=== PATIENT | female | born 1970 | race Caucasian/White ===

== ENCOUNTER 2017-04-11 10:54 | Outpatient (CLI) | payer OTHER ==
--- NOTE | 2017-04-11 13:10 | XRAY Report ---
THREE-VIEW LEFT KNEE: 04/11/2017 CLINICAL INDICATION: Pain. FINDINGS: AP, lateral, sunrise views of the left knee demonstrate mild osteoarthritis, with small ma rginal osteophytes. There is no evidence of acute fracture or dislocation. No effusion is present. IMPRESSION: MILD OSTEOARTHRITIS. JOB #: [id number] EXT JOB #:[id number]
== END 2017-04-11 10:55 | disposition home or self-care (01) ==
LOC: DI 10:54
PROVIDERS: ATTEND Physician Assistant Medical
DX: M17.12 Unilateral primary osteoarthritis, left knee (principal)

== ENCOUNTER 2017-04-15 18:58 | Emergency (ER) | payer OTHER ==
[2017-04-15] MEDS ORDERED: KETOROLAC 60 MG/2 ML VIAL IM STA (20:57)
[2017-04-15] MEDS ORDERED: DEXAMETHASONE 10 MG/ML VIAL PO STA (20:57)
--- NOTE | 2017-04-15 21:15 | ED Physician Documentation ---
PD HPI LOWER EXT INJURY - Stated complaint Stated Complaint: L LEG PAIN - Chief complaint Chief Complaint: Ext Problem - History obtained from History obtained from: Patient - History of Present Illness PD HPI LOW EXT INJURY LOCATION: Left, Knee, Foot Type of injury: Other (foot has been hurting for weeks) Where injury occurred: Home Timing - onset: How many weeks ago (3) Timing - duration: Weeks (3) Timing - details: Gradual onset, Still present Improved by: Rest, Immobilization Worsened by: Moving, Other (weight bearing) Associated symptoms: Swelling. No: Weakness, Numbness, Tingling Contributing factors: No: Anticoagulated Similar symptoms before: Diagnosis (The patient has had a fracture of the 5th prox metatarsal) Recently seen: Clinic (has had imaging of the knee last friday,) - Additional information Additional information: 46 y/o female with a prior left foot fracture has had some pain in her foot and has been walking differently and has developed pain in her left knee. She has been in to see the doctor and has had an x-ray done 4 days ago. Today she was walking up her steps and twisted her knee and has sudden and severe pain in the posterior aspect of the knee. She has sever pain in the knee with weight bearing and it is tolerable when she is still. She refuses pain medications. Review of Systems Constitutional: denies: Fever, Chills, Myalgias, Fatigue Eyes: denies: Decreased vision Ears: denies: Ear pain Nose: denies: Congestion Respiratory: denies: Dyspnea, Cough GI: denies: Vomiting Musculoskeletal: reports: Extremity pain, Joint pain, Joint swelling, Pain with weight bearing. 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 - Allergies Allergies/Adverse Reactions: Allergies Allergy/AdvReac Type Severity Reaction Status Date / Time oxycodone Allergy Rash Verified 04/15/17 19:30 - Social History Does the pt smoke?: No Smoking Status: Never smoker Does the pt drink ETOH?: Yes Does the pt have substance abuse?: No - Immunizations Immunizations are current?: Yes PD ED PE NORMAL - Vitals Vital signs reviewed: Yes (hypertensive ) - General General: Alert and oriented X 3, Well developed/nourished, Other (The patient appears to be in pain with floor layer tile tone and flattened affect.) - HEENT HEENT: Atraumatic, PERRL - Respiratory Respiratory: No respiratory distress - Derm Derm: Normal color, Warm and dry, No rash (The patient has large legs. She has tenderness and palpable effusion to the left knee. She has stability of the ligaments and she does appear to have a Coombs's cyst. Examination of the foot result reveals some tenderness over the proximal fifth metatarsal. Distal neurovascular components are intact.) - Extremities Extremities: No deformity, No edema, Other - Neuro Neuro: Alert and oriented X 3, No motor deficit, No sensory deficit, Normal speech - Psych Psych: Normal mood, Normal affect Results - Vitals Vitals: Vital Signs - 24 hr 04/15/17 04/15/17 04/16/17 19:27 22:39 00:40 Temperature 36.8 C 36.4 C L Heart Rate 70 73 69 Respiratory 17 18 19 Rate Blood Pressure 142/90 H 114/73 137/82 H O2 Saturation 98 96 99 Oxygen O2 Source Room air - Rads (name of study) Left foot Radiology: Prelim report reviewed (Impression: no acute disease.), EMP read indepedently, See rad report Procedures - Arthrocentesis Joint: Knee Preparation: Sterile prep and drape Anesthesia: Lidocaine 1% Fluid: Other (not obtained) Aftercare: Dressing applied PD MEDICAL DECISION MAKING - ED course Complexity details: reviewed results, re-evaluated patient, considered differential, d/w patient ED course: 46-year-old female with increased pain to her left knee and specifically pain with weightbearing that is intolerable. Appears to have a joint effusion. My concern for this was a reactive arthritis and I felt the patient may benefit from arthrocentesis. I was concerned with the size of the patient's leg but I would not be able to register the landmarks correctly and when I attempted the procedure, this failed. The patient was understanding and I have recommended that she follow-up with her ortho tomorrow for arthrocentesis. She was administered decadron in the ED as well as IM toradal. I did not thinks this was a septic joint. Departure - Departure Disposition: 01 Home, Self Care Clinical Impression: Reactive arthritis of knee Condition: Stable Instructions: ED Degenerative Joint Disease Follow-Up: Bindu Way PA-C [Primary Care Provider] - [facility] [Provider Group] Comments: Today it appears the pain you are having in her knee is related to reactive arthritis. We were not able to get fluid from the knee joint. It may be helpful to relieve the pain by removing the fluid and a follow-up with your orthopedic doctor tomorrow is indicated. Discharge Date/Time: 04/16/17 00:45
[2017-04-15] MEDS ORDERED: KETOROLAC 60 MG/2 ML VIAL ONE (21:16)
[2017-04-15] MEDS ORDERED: DEXAMETHASONE 10 MG/ML VIAL ONE (21:16)
[2017-04-15] MEDS ORDERED: CHERRY SYRUP 10 ML UDC PO ONE (21:16)
--- NOTE | 2017-04-15 22:12 | XRAY Preliminary Report ---
Exam: XR Foot 3 View LT IMPRESSION: No acute disease. [facility] SITE ID: [id number]
--- NOTE | 2017-04-15 22:14 | XRAY Report ---
EXAM: LEFT FOOT RADIOGRAPHY EXAM DATE: 04/15/2017 09:37 PM. CLINICAL HISTORY: Lateral foot pain . COMPARISON: None. TECHNIQUE: 3 views. FINDINGS: Bones: Small plantar and posterior calcaneal spurs. No definite fracture or other bone lesion. Joints: Normal. No subluxations. Soft Tissues: Unremarkable. IMPRESSION: No acute disease. [facility] Referring Provider Line: [phone] SITE ID: [id number]
[2017-04-15] MEDS ORDERED: LIDOCAINE 1% 2 ML VIAL ONE (23:39)
[2017-04-16 00:40] VITALS: BP 137/82
== END 2017-04-16 00:45 | disposition home or self-care (01) ==
LOC: ED 18:58
DX: M02.362 Reiter's disease, left knee (principal)
CPT/HCPCS: 20600; 73630; 96372; 99283; A9270

== ENCOUNTER 2017-09-04 11:00 | Outpatient (CLI) | payer OTHER | END 2017-09-04 11:01 | disposition critical access hospital (66) | LOC: EMS 11:00 | PROVIDERS: ATTEND Surgery | DX: M54.5 Low back pain (principal); V54.5XXA Driver of pick-up truck or van injured in collision with heavy transport vehicle or bus in traffic accident, initial encounter; Y92.413 State road as the place of occurrence of the external cause | CPT/HCPCS: A0425; A0429 ==

== ENCOUNTER 2017-09-04 11:48 | Emergency (ER) | payer OTHER ==
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
--- NOTE | 2017-09-04 14:35 | XRAY Preliminary Report ---
Exam: XR LUMBAR SPINE 2 VIEW IMPRESSION: 1. No acute bony abnormality. 2. Multilevel mild degenerative disk disease. [facility] SITE ID: [id number]
--- NOTE | 2017-09-04 14:36 | XRAY Preliminary Report ---
Exam: XR SHOULDER 3 VIEW LT IMPRESSION: Normal shoulder radiography. [facility] SITE ID: [id number]
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
[2017-09-04 14:50] VITALS: BP 140/91
== END 2017-09-04 14:48 | disposition home or self-care (01) ==
LOC: EDUNIT# → ED 11:48
DX: S39.012A Strain of muscle, fascia and tendon of lower back, initial encounter (principal); S40.012A Contusion of left shoulder, initial encounter; V54.5XXA Driver of pick-up truck or van injured in collision with heavy transport vehicle or bus in traffic accident, initial encounter; Y92.488 Other paved roadways as the place of occurrence of the external cause; R03.0 Elevated blood-pressure reading, without diagnosis of hypertension
CPT/HCPCS: 72100; 99283